=== PATIENT | male | born 1975 | race Caucasian/White ===

== ENCOUNTER 2021-03-11 13:11 | Inpatient (IN) | payer MEDICAID ==
[~2021-03-11] VITALS: Ht 167.6 cm; Wt 79.4 kg
--- NOTE | 2021-03-11 13:32 | NUR ---
Dr Dai at the bedside for MSE.
[2021-03-11] MEDS ORDERED: ONDANSETRON 4 MG/2 ML VIAL ONE (13:44)
[2021-03-11] MEDS ORDERED: ONDANSETRON 4 MG/2 ML VIAL IV ONE (13:45)
[2021-03-11] MEDS ORDERED: IV NORMAL SALINE 1000 ML BAG IV ONE ×3 (13:45→16:45)
[2021-03-11] MEDS ORDERED: METFORMIN (13:56)
[2021-03-11 13:58] LABS: BASOPHILS # (AUTO) 0.1 K/uL (0.0-8.0); EOSINOPHILS % (AUTO) 0.8 % (0.0-7.0); HEMATOCRIT 34.1 % (36.7-47.1); HEMOGLOBIN 11.3 g/dL (12.5-16.3); LYMPHOCYTES # (AUTO) 1.4 K/uL (20.0-40.0); LYMPHOCYTES % (AUTO) 34.6 % (20.5-51.5); MEAN CORPUSCULAR HEMOGLOBIN 27.9 uug (23.8-33.4); MEAN CORPUSCULAR HGB CONC 33 g/dL (32.5-36.3); MEAN CORPUSCULAR VOLUME 84.2 fL (73.0-96.2); MONOCYTES # (AUTO) 0.2 K/uL (2.0-10.0); MONOCYTES % (AUTO) 4.8 % (0.0-11.0); NEUTROPHILS # (AUTO) 2.2 K/uL (1.8-8.9); NEUTROPHILS % (AUTO) 56.8 % (38.5-71.5); PLATELET COUNT (AUTO) 211 K/uL (152-348); RED BLOOD CELL COUNT(AUTO) 4.05 MIL/uL (4.06-5.63); WHITE BLOOD COUNT (AUTO) 3.9 K/uL (3.6-10.2)
[2021-03-11 14:17] LABS: BILIRUBIN,DIRECT 0.1 mg/dL (0.0-0.2); BILIRUBIN,TOTAL 0.4 mg/dL (0.2-1.0); CREATININE 0.9 mg/dL (0.6-1.3); TOTAL PROTEIN, SERUM 6.3 g/dL (6.4-8.2)
--- NOTE | 2021-03-11 14:22 | NUR ---
Dr Dai spoke to admitting MD, Dr Jameson for TELE admit. Pt is made aware of admit and diagnosis by ER MD.
[2021-03-11] MEDS ORDERED: INSULIN REGULAR, HUMAN 300 UNIT/3 ML VIAL ONE (14:26)
[2021-03-11] MEDS ORDERED: INSULIN REGULAR, HUMAN 300 UNIT/3 ML VIAL IV ONE (14:30)
--- NOTE | 2021-03-11 14:43 | NUR ---
Patient is resting comfortably in bed with eyes closed, NAD noted.
[2021-03-11] MEDS ORDERED: POTASSIUM CHLORIDE 20 MEQ TAB.PRT.SR ONE (14:59)
[2021-03-11] MEDS ORDERED: POTASSIUM CHLORIDE 20 MEQ TAB.PRT.SR PO ONE (15:00)
[2021-03-11 17:00] VITALS: BP 128/86
--- NOTE | 2021-03-11 17:00 | NUR ---
received report on pt from JULITA Curry. pt from ER c/o hyperglycemia, on tele monitor, pt on room air, no signs of distress, no reports of pain at this time. pt has IV access on the Left AC 20g. call light within reach, safety precautions in place, will continue to monitor.
[2021-03-11 17:03] LABS: *BILIRUBIN,URIN NEGATIVE (NEGATIVE); *BLOOD, URINE TRACE INTACT (NEGATIVE); *CLARITY,URINE CLEAR (CLEAR); *COLOR,URINE YELLOW (YELLOW); *KETONES,URINE NEGATIVE (NEGATIVE); *UROBILINOGEN,URINE 0.2 E.U./dl (NORMAL); LEUKOCYTE ESTERASE ,URINE NEGATIVE (NEGATIVE); NITRITE, URINE NEGATIVE (NEGATIVE); PH,URINE 6.5 (5.0-8.0); UGLUCOSE 2+ (NEGATIVE)
[2021-03-11 17:08] LABS: BACTERIA,URINE NONE SEEN /HPF (NONE SEEN); RBC,URINE 0-3 /HPF (0-3); SQUAMOUS EPITHELIAL CELL,UR FEW /HPF (NONE SEEN); URINE AMORPHOUS URATE FEW /HPF; WBC,URINE 0-3 /HPF (0-3)
--- NOTE | 2021-03-11 17:30 | NUR ---
PT ADMITTED TO TELE UNIT FROM ER. PT C/O HYPERGLYCEMIA, LAST BG CHECK IN ER WAS 89, OJ WAS GIVEN PER ER NURSE. 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 PT WAS A FORMER SMOKER AND QUIT 10 YEARS AGO, STATES HE HAS FALLEN 6 MONTHS AGO FROM BEING DIZZY AND JUST 4 DAYS AGO HIS RIGHT KNEE STARTED TO SWELL. PT ALSO MENTIONED HE HEARS VOICES IN HIS SLEEP ON OCCASION AND DOES NOT GET A GOOD NIGHTS REST. PT HAS HAD THOUGHTS OF SUICIDE TWICE IN THE PAST 4 MONTHS BUT DOES NOT HAVE A PLAN NOR DOES HE PLAN ON ACTING ON IT. PT C/O NUMBNESS AND PAIN IN THE WRISTS AND ANKLES, AND DRINKS 4 BEERS EVERY WEEKEND. PT VITALS BP 128/86, HR 100, O2 98 ON ROOM AIR, RR 20, NO PAIN AT THIS TIME. CALL LIGHT WITHIN REACH, IV ON THE LEFT AC 20G. WILL ENDORSE TO ONCOMING NURSE.
[2021-03-11 20:30] VITALS: BP 121/79
[2021-03-11] MEDS ORDERED: ACETAMINOPHEN 325 MG TABLET PO PRN (21:00)
[2021-03-11] MEDS ORDERED: MORPHINE SULFATE 2 MG/1 ML DISP.SYRIN IV PRN (21:00)
[2021-03-11] MEDS ORDERED: TEMAZEPAM 15 MG CAPSULE PO PRN (21:00)
[2021-03-11] MEDS ORDERED: CLONIDINE HCL 0.1 MG TABLET PO PRN (21:00)
[2021-03-11] MEDS ORDERED: DEXTROSE 50% 50 ML DISP.SYRIN IV PRN (21:15)
[2021-03-11 21:25] LABS: *AMPHETAMINE, URINE NEGATIVE (NEGATIVE); *CANNABINOID, URINE NEGATIVE (NEGATIVE); *COCCAINE, URINE NEGATIVE (NEGATIVE); *OPIATE, URINE NEGATIVE (NEGATIVE); *PHENCYCLIDINE SCREEN,URINE NEGATIVE (NEGATIVE)
[2021-03-11 21:37] LABS: ETHANOL 354 MG/DL (0-0)
[2021-03-11] MEDS ORDERED: LORAZEPAM 2 MG/1 ML VIAL IV PRN (22:00)
[2021-03-11] MEDS: INSULIN GLARGINE,HUM 300 UNITS/3 ML CARTRIDGE SQ SCH (22:03)
[2021-03-11] MEDS ORDERED: MAG HYDROX/AL HYDROX/SIMETH 30 ML LIQUID UDC PO PRN (22:15)
[2021-03-11] MEDS: POTASSIUM CHLORIDE 20 MEQ in IV 1/2NS 1000 ML 1,000 ML IV PRN (23:38)
[2021-03-12 00:15] VITALS: BP 112/67
[2021-03-12 04:30] VITALS: BP 118/83
[2021-03-12] MEDS: PANTOPRAZOLE SODIUM 40 MG TABLET.DR PO SCH (06:33)
[2021-03-12] MEDS: BLOOD SUGAR DIAGNOSTIC 1 EACH STRIP VI SCH ×4 (06:57→21:31)
[2021-03-12] MEDS: ONDANSETRON 4 MG/2 ML VIAL IV PRN ×3 (07:11→21:37)
[2021-03-12 07:16] LABS: BASOPHILS # (AUTO) 0.1 K/uL (0.0-8.0); BASOPHILS % (AUTO) 2.1 % (0.0-2.0); EOSINOPHILS # (AUTO) 0.1 K/uL (0.0-0.7); EOSINOPHILS % (AUTO) 2.6 % (0.0-7.0); HEMOGLOBIN 11.4 g/dL (12.5-16.3); LYMPHOCYTES # (AUTO) 1.4 K/uL (20.0-40.0); LYMPHOCYTES % (AUTO) 35.2 % (20.5-51.5); MEAN CORPUSCULAR HGB CONC 33 g/dL (32.5-36.3); MEAN CORPUSCULAR VOLUME 83.9 fL (73.0-96.2); MONOCYTES # (AUTO) 0.3 K/uL (2.0-10.0); MONOCYTES % (AUTO) 6.3 % (0.0-11.0); NEUTROPHILS # (AUTO) 2.2 K/uL (1.8-8.9); NEUTROPHILS % (AUTO) 53.8 % (38.5-71.5); PLATELET COUNT (AUTO) 181 K/uL (152-348); RED BLOOD CELL COUNT(AUTO) 4.06 MIL/uL (4.06-5.63); WHITE BLOOD COUNT (AUTO) 4.1 K/uL (3.6-10.2)
--- NOTE | 2021-03-12 07:16 | NUR ---
Patient remains in stable condition. Patient slept well throughout the night. Patient reported feeling nauseous and Zofran provided at this time. VS stable, no SOB, no signs of distress.
[2021-03-12 07:37] LABS: THYROID STIMULATING HORMONE 2.896 mIU/mL (0.358-3.740)
[2021-03-12 07:39] LABS: BILIRUBIN,TOTAL 0.5 mg/dL (0.2-1.0); CREATININE 0.8 mg/dL (0.6-1.3); MAGNESIUM 1.4 mg/dL (1.8-2.4); PHOSPHOROUS 2.8 mg/dL (2.5-4.9); POTASSIUM 3.6 mmol/L (3.5-5.1); TOTAL PROTEIN, SERUM 6.2 g/dL (6.4-8.2)
--- NOTE | 2021-03-12 08:00 | NUR ---
RESTING IN BED BUT STILL WITH C/O ON AND OFF VOMITING, REFUSED BREAKFAST. CONTINUE WITH IVFS ORDERED. SR ON MONITOR
[2021-03-12] MEDS: INSULIN REGULAR, HUMAN 300 UNIT/3 ML VIAL SQ PRN ×4 (08:02→21:30)
[2021-03-12] MEDS ORDERED: MAGNESIUM OXIDE 400 MG TABLET PO ONE (08:15)
[2021-03-12] MEDS: THIAMINE HCL 100 MG TABLET PO SCH (08:39)
[2021-03-12] MEDS: FOLIC ACID 1 MG TABLET PO SCH (08:39)
[2021-03-12] MEDS: MULTIVITAMINS,THERAPEUTIC TABLET PO SCH (08:39)
[2021-03-12 11:59] VITALS: BP 136/84
--- NOTE | 2021-03-12 12:19 | NUR ---
Head Baker Consultation: 11:15am: Head Baker Consultation requested for alcohol abuse. This PLASTER BLOCK LAYER met with the patient in his med/surg room. Patient is awake, alert, oriented x 3, receptive to meeting with this PLASTER BLOCK LAYER. Patient's primary language is Syriac, however speaks sufficient Mosotho in order to complete this assessment. Patient reports coming to the ED due to abdominal pain, nausea, and vomiting. Patient stated he has diabetes and takes Metformin, but when he went to work yesterday, he did not feel well, became dizzy and nauseas, and had to call an ambulance for transport to the ED. Patient states he drank 3 beers yesterday. Patient lives alone at [address] [place] [address], and works at a [employer]. Patient is independent with ADL's. Patient has a brother and sister who lives in [place]. Patient stated having friends and co-workers as his social support. 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 Patient reports drinking about 2-3 times a week, about 3-5 beers each time. Patient reported hx of cigarette use, but no current use. Patient denied used of any other drugs. Patient denied SI. Patient denied hallucinations. Discharge plans discussed, and patient stated he will be returning home. This PLASTER BLOCK LAYER offered resources on substance abuse treatment programs, and patient declined. PLAN: Patient to return home once discharged from the hospital. No further SS interventions needed at this time, however secondary social studies teacher will remain available, as needed.
[2021-03-12] MEDS: POTASSIUM CHLORIDE 20 MEQ in IV 1/2NS 1000 ML 1,000 ML IV PRN (15:18)
[2021-03-12 16:00] VITALS: BP 129/77
--- NOTE | 2021-03-12 17:50 | NUR ---
MEDICATED X1 WITH ZOFRAN FOR VOMITING GREEN THICK LIQUID STOMACH CONTENT. ZOFRAN X1 WITH GOOD RELIEF. APPETITE REMAINS POOR DUE TO NAUSEA AND VOMITING
[2021-03-12 20:18] VITALS: BP 133/83
[2021-03-12] MEDS: INSULIN GLARGINE,HUM 300 UNITS/3 ML CARTRIDGE SQ SCH (21:31)
[2021-03-13 04:18] VITALS: BP 122/67
[2021-03-13] MEDS: POTASSIUM CHLORIDE 20 MEQ in IV 1/2NS 1000 ML 1,000 ML IV PRN ×2 (06:22→20:46)
[2021-03-13] MEDS: PANTOPRAZOLE SODIUM 40 MG TABLET.DR PO SCH (06:22)
[2021-03-13] MEDS: BLOOD SUGAR DIAGNOSTIC 1 EACH STRIP VI SCH ×4 (06:41→20:38)
--- NOTE | 2021-03-13 06:42 | NUR ---
Patient resting in bed. No s/s of acute distress noted at this time. Afebrile last night. C/o nausea, no episodes of emesis. Zofran administered one time, treatment effective. Left AC IV remains patent and intact, infusing ordered fluids. Safety measures in place and will endorse to oncoming nurse.
--- NOTE | 2021-03-13 08:00 | NUR ---
MORE STABLE, LESS NAUSEA FEELING NOTED THIS MORNING, ABLE TO EAT BREAKFAST. CONTINUE WITH IVF ORDERED.
[2021-03-13] MEDS: THIAMINE HCL 100 MG TABLET PO SCH (08:40)
[2021-03-13] MEDS: MULTIVITAMINS,THERAPEUTIC TABLET PO SCH (08:40)
[2021-03-13] MEDS: ONDANSETRON 4 MG/2 ML VIAL IV PRN (08:41)
[2021-03-13] MEDS: FOLIC ACID 1 MG TABLET PO SCH (08:41)
[2021-03-13 11:00] VITALS: BP 122/77
[2021-03-13] MEDS: INSULIN REGULAR, HUMAN 300 UNIT/3 ML VIAL SQ PRN ×3 (11:38→20:42)
--- NOTE | 2021-03-13 12:00 | NUR ---
NO ACUTE CHANGE FROM AM ASSESSMENTS
[2021-03-13 16:00] VITALS: BP 124/62
--- NOTE | 2021-03-13 18:40 | NUR ---
NO VOMITING NOTED THE WHOLE SHIFT DENIES ANY PAIN. CONTINUE WITH IVF. AFEBRILE
[2021-03-13 20:00] VITALS: BP 129/86
[2021-03-13] MEDS: INSULIN GLARGINE,HUM 300 UNITS/3 ML CARTRIDGE SQ SCH (20:40)
[2021-03-14 04:00] VITALS: BP 127/82
[2021-03-14] MEDS: PANTOPRAZOLE SODIUM 40 MG TABLET.DR PO SCH (06:39)
[2021-03-14] MEDS: glipiZIDE 5 MG TABLET PO SCH ×2 (06:39→16:49)
[2021-03-14] MEDS: BLOOD SUGAR DIAGNOSTIC 1 EACH STRIP VI SCH ×3 (06:40→16:49)
--- NOTE | 2021-03-14 06:47 | NUR ---
Patient slept well. Patient denied nausea and no vomiting noted throughout entire shift. Afebrile and VS WNL. All patient needs were met and attended to. Safety precautions in place and will endorse to oncoming nurse.
[2021-03-14 07:06] LABS: BASOPHILS % (AUTO) 1.1 % (0.0-2.0); EOSINOPHILS # (AUTO) 0.2 K/uL (0.0-0.7); EOSINOPHILS % (AUTO) 4.4 % (0.0-7.0); HEMATOCRIT 36.1 % (36.7-47.1); HEMOGLOBIN 12.1 g/dL (12.5-16.3); LYMPHOCYTES # (AUTO) 1.6 K/uL (20.0-40.0); LYMPHOCYTES % (AUTO) 36.1 % (20.5-51.5); MEAN CORPUSCULAR HGB CONC 34 g/dL (32.5-36.3); MEAN CORPUSCULAR VOLUME 83.4 fL (73.0-96.2); MONOCYTES # (AUTO) 0.3 K/uL (2.0-10.0); MONOCYTES % (AUTO) 7.8 % (0.0-11.0); NEUTROPHILS # (AUTO) 2.2 K/uL (1.8-8.9); NEUTROPHILS % (AUTO) 50.6 % (38.5-71.5); PLATELET COUNT (AUTO) 154 K/uL (152-348); RED BLOOD CELL COUNT(AUTO) 4.32 MIL/uL (4.06-5.63); WHITE BLOOD COUNT (AUTO) 4.4 K/uL (3.6-10.2)
[2021-03-14 07:23] LABS: CREATININE 0.8 mg/dL (0.6-1.3); MAGNESIUM 1.5 mg/dL (1.8-2.4); PHOSPHOROUS 3.3 mg/dL (2.5-4.9); POTASSIUM 3.3 mmol/L (3.5-5.1)
--- NOTE | 2021-03-14 07:26 | NUR ---
RECEIVED RESTING BUT EASY TO AROUSE. DENIES PAIN. IN NO ACUTE DISTRESS. IV INTACT, HYDRATION ONGOING AND TOLERATED. BED LOW AND LOCKED. PATIENT IS COMFORTABLE. WILL CONTINUE TO MONITOR.
[2021-03-14 07:37] VITALS: BP 122/77
[2021-03-14] MEDS: INSULIN REGULAR, HUMAN 300 UNIT/3 ML VIAL SQ PRN (08:09)
[2021-03-14] MEDS: FOLIC ACID 1 MG TABLET PO SCH (08:11)
[2021-03-14] MEDS: MULTIVITAMINS,THERAPEUTIC TABLET PO SCH (08:11)
[2021-03-14] MEDS: METFORMIN HCL 500 MG TABLET PO SCH ×2 (08:11→17:12)
[2021-03-14] MEDS: THIAMINE HCL 100 MG TABLET PO SCH (08:11)
[2021-03-14] MEDS ORDERED: MAGNESIUM OXIDE 400 MG TABLET PO ONE (10:45)
[2021-03-14] MEDS ORDERED: POTASSIUM CHLORIDE 20 MEQ TAB.PRT.SR PO ONE (10:45)
[2021-03-14] MEDS: POTASSIUM CHLORIDE 20 MEQ in IV 1/2NS 1000 ML 1,000 ML IV PRN (11:11)
[2021-03-14 11:36] VITALS: BP 138/95
--- NOTE | 2021-03-14 11:52 | NUR ---
PATIENT DENIES NAUSEA OR VOMITING. TOLERATED BREAKFAST AND AM MEDS TAKEN WITHOUT DIFFICULTY. CONTINUE TO MONITOR.
[2021-03-14] MEDS ORDERED: MULT-24 PO (15:09)
[2021-03-14] MEDS ORDERED: LISI-782 PO (15:09)
[2021-03-14] MEDS ORDERED: GLIP5TAB13 PO (15:09)
[2021-03-14] MEDS ORDERED: METF-440 PO (15:09)
[2021-03-14 16:00] VITALS: BP 122/74
--- NOTE | 2021-03-14 17:21 | NUR ---
SPOKE WITH KATHERINE MEHTA. HE WILL BE ABLE TO PICK HIM UP AROUND 6PM.
--- NOTE | 2021-03-14 18:09 | NUR ---
PATIENT DISCHARGED TO HOME STABLE. ALERT AND ORIENTED X4, AMBULATORY, IN NO ACUTE DISTRESS. DENIES PAIN, SOB, NAUSEA OR VOMITING. DUE MEDS GIVEN AND TOLERATED. PATIENT HAD DINNER PRIOR TO DISCHARGE. DENIES NAUSEA OR VOMITING. DISCHARGE INSTRUCTIONS AND MEDICATION TEACHING DONE PATIENT NODDED AND VERBALIZED UNDERSTANDING. IV REMOVED WITH NO COMPLICATIONS. PATIENT DISCHARGED WITH ALL HIS BELONGINGS IN GOOD CONDITION PICKED UP BY DOLORES MEHTA IN [employer].
== END 2021-03-14 18:00 | disposition home or self-care (01) | DRG 241 ==
LOC: ER 13:11 → TELE3 16:51 → MEDSURG3 03-12 10:00
PROVIDERS: ADMIT Internal Medicine; ATTEND Internal Medicine
DX: K29.20 Alcoholic gastritis without bleeding (principal); E11.65 Type 2 diabetes mellitus with hyperglycemia; E87.2 Acidosis; F10.229 Alcohol dependence with intoxication, unspecified; E83.42 Hypomagnesemia; E66.9 Obesity, unspecified; E87.6 Hypokalemia; R11.2 Nausea with vomiting, unspecified; E86.0 Dehydration; Z79.84 Long term (current) use of oral hypoglycemic drugs; Z20.822 Contact with and (suspected) exposure to COVID-19; Z87.891 Personal history of nicotine dependence; Y90.8 Blood alcohol level of 240 mg/100 ml or more; D64.9 Anemia, unspecified; Z68.28 Body mass index [BMI] 28.0-28.9, adult
CPT/HCPCS: 36415; 70030-TC; 71045; 83550; 83605; 83690; 83735; 84100; 84443; 85025; 87086; 93005; A4663; G0378; G0480; J1815; J2405; J3480; J3490; J7030